=== PATIENT | male | born 1965 | race Caucasian/White ===

== ENCOUNTER → 2020-01-10 | Outpatient (CLI) | payer MEDICARE, MEDICAID, SELFPAY ==
--- NOTE | 2020-01-10 15:00 | TISS_PTH ---
PATIENT: FREDDIE SCHULZ LOC: [facility] U#:[id number] AGE/SX: 54/M ROOM: RE01/10/[address]: Dr. Chris Henao MD : 1965 BED: DIS: 01/10/2020 SPEC #: [id number] RECD: 01/11/20 15:43 STATUS: HEATHER MATILDE #: [id number] ROSALBA: 01/10/20 15:[address]: Chris Henao DEPT: SURGICAL PATHOLOGY RECD BY: Errol Zuluaga ENTERED: 01/11/20 07:35 SP TYPE: Tissue Bx EUFEMIA DR: Dr. Tank Mata MD Tissues: Right foot Procedures: Surgery Specimen Level IV HEADER OPERATION: Punch biopsy right foot PRE-OP DIAGNOSIS: Rash right foot TISSUE SUBMITTED: Punch biopsy right foot MICROSCOPIC DIAGNOSIS Skin of right foot, punch biopsy: Minimal superficial chronic dermal inflammation. Hyperkeratosis. No evidence of malignancy. AM:meseret 01/15/20 MICROSCOPIC DESCRIPTION Slides are reviewed. GROSS DESCRIPTION Received in fixative is one container labeled with the patient's name and designated punch biopsy right foot. The specimen consists of a punch biopsy of sams-white skin measuring 0.3 cm in diameter and 0.3 cm in length. The entire specimen is submitted in one cassette. / SJ:rg 01/11/20 TC:5 CPT: 14942
[2020-01-10 15:20] VITALS: BMI 23.4
== END | disposition home or self-care (01) ==
LOC: LABSPEC 15:53
PROVIDERS: PCP Family Medicine; Referring Provider Surgery; Visit Provider Surgery
DX: R21 Rash and other nonspecific skin eruption (principal)
CPT/HCPCS: 88305